=== PATIENT | female | born 1985 | race Caucasian/White ===

== ENCOUNTER 2020-06-12 10:49 | Observation (INO) ==
[2020-06-12 11:31] LABS: Basophils % 0.4 %; Eosinophils # 0.1 K/mcL (0.0-0.6); Eosinophils % 0.9 %; Hematocrit 40.1 % (35.3-44.9); Hemoglobin 12.4 g/dL (11.5-15.4); Immature Granulocytes % 0.6 % (0-4); Lymphocytes # 1.4 K/mcL (0.6-4.6); Lymphocytes % 13.1 %; Mean Corpuscular HGB Conc 30.9 g/dL (31.6-35.5); Mean Corpuscular Hemoglobin 25.7 pg (28.0-33.3); Mean Corpuscular Volume 83.2 fL (83.0-100.0); Mean Platelet Volume 8.6 fL (9.4-12.4); Monocytes # 0.4 K/mcL (0.0-1.3); Monocytes % 3.5 %; Neutrophils # 8.9 K/mcL (1.6-8.9); Platelet Count 340 K/mcL (140-400); Red Blood Count 4.82 M/mcL (3.82-4.97); Red Cell Distribution Width 12.8 % (11.5-14.5); Segmented Neutrophils % 81.5 %
[2020-06-12 12:02] LABS: Alanine Aminotransferase 20 Units/L (7-52); Albumin 4.2 g/dL (3.5-5.7); Albumin/Globulin Ratio 1.6 (1.1-2.2); Alkaline Phosphatase 72 Units/L (34-104); Aspartate Amino Transferase 25 Units/L (13-39); BUN/Creatinine Ratio 14 (6-26); Bilirubin,Direct 0.1 mg/dL (0.0-0.2); Bilirubin,Indirect 0.4 mg/dL (0.0-1.0); Bilirubin,Total 0.5 mg/dL (0.3-1.0); Blood Urea Nitrogen 11 mg/dL (6-20); Calcium 9.3 mg/dL (8.6-10.3); Carbon Dioxide 22 mEq/L (23-29); Chloride 106 mEq/L (98-107); Globulin 2.7 g/dL (2.4-3.5); Glucose 119 mg/dL (70-105); Lactate Dehydrogenase 132 Units/L (140-271); Osmolality,Calculated 289 (280-300); Potassium 3.4 mEq/L (3.5-5.1); Sodium 139 mEq/L (136-145); Total Protein 6.9 g/dL (6.4-8.9); Uric Acid 4.6 mg/dL (2.3-7.6); eGFR For African Americans > 60 (> 60); eGFR For Non-African Americans > 60 (> 60)
[2020-06-12 12:20] LABS: Bacteria,Urine Few per hpf (None-Few); Bilirubin,Urine Negative (Negative); Blood,Urine Large (Negative); Clarity,Urine Clear (Clear); Color,Urine Yellow (Yellow); Glucose,Urine (UA) Normal (Normal); Hyaline Casts,Urine Moderate per lpf (None Seen); Ketones,Urine Negative (Negative); Leukocyte Esterase,Urine Negative (Negative); Mucus,Urine Few per lpf (None-Few); Nitrite,Urine Negative (Negative); Protein,Urine 30 mg/dL (Neg-Trace); RBC,Urine 0-3 per hpf (0-3); Specific Gravity,Urine 1.019 (1.010-1.025); Squamous Epithelial Cell,Urine Few per hpf (None-Few); Urobilinogen,Urine Normal (Normal)
[2020-06-12 12:23] LABS: Protein/Creatinine Ratio,Urine 0.3 mg/mg (0.00-0.20)
[2020-06-12] MEDS: Ibuprofen 600 MG TABLET PO PRN (18:36)
[2020-06-13] MEDS: Acetaminophen 325 MG TABLET PO PRN ×2 (00:11→09:28)
[2020-06-13] MEDS: Magnesium Sulf 20 gm/SW 500mL 20 GM/500 ML IV.SOLN IVC SCH ×2 (00:15→09:27)
[2020-06-13] MEDS ORDERED: Calcium Gluconate 1,000 MG/10 ML VIAL ONE (00:39)
[2020-06-13] MEDS: Ibuprofen 600 MG TABLET PO PRN ×2 (04:58→11:39)
[2020-06-13 08:15] LABS: Basophils % 0.5 %; Eosinophils # 0.1 K/mcL (0.0-0.6); Eosinophils % 1.4 %; Hematocrit 37.7 % (35.3-44.9); Immature Granulocytes % 0.5 % (0-4); Lymphocytes # 1.5 K/mcL (0.6-4.6); Lymphocytes % 26.4 %; Mean Corpuscular HGB Conc 31.8 g/dL (31.6-35.5); Mean Corpuscular Hemoglobin 26.5 pg (28.0-33.3); Mean Corpuscular Volume 83.2 fL (83.0-100.0); Mean Platelet Volume 8.6 fL (9.4-12.4); Monocytes # 0.3 K/mcL (0.0-1.3); Neutrophils # 3.7 K/mcL (1.6-8.9); Platelet Count 317 K/mcL (140-400); Red Blood Count 4.53 M/mcL (3.82-4.97); Red Cell Distribution Width 12.7 % (11.5-14.5); Segmented Neutrophils % 65.2 %; White Blood Count 5.6 K/mcL (4.3-11.1)
[2020-06-13 08:38] LABS: Alanine Aminotransferase 17 Units/L (7-52); Aspartate Amino Transferase 20 Units/L (13-39); BUN/Creatinine Ratio 16 (6-26); Blood Urea Nitrogen 10 mg/dL (6-20); Lactate Dehydrogenase 121 Units/L (140-271); eGFR For African Americans > 60 (> 60); eGFR For Non-African Americans > 60 (> 60)
[2020-06-13] MEDS: Ringers Solution, Lactated 1,000 ML IVC SCH ×2 (10:30→19:41)
[2020-06-13] MEDS ORDERED: Ringers Solution, Lactated 1,000 ML ONE (10:33)
[2020-06-13] MEDS ORDERED: Magnesium Sulf 20 gm/SW 500mL 20 GM/500 ML IV.SOLN IVC SCH (19:15)
[2020-06-13] MEDS: levETIRAcetam 250 MG TABLET PO SCH (19:42)
[2020-06-14] MEDS: levETIRAcetam 250 MG TABLET PO SCH (08:18)
[2020-06-14 09:39] VITALS: BP 129/88
[2020-06-17] MEDS ORDERED: ADALIMUMAB 40 MG SQ SCH (09:00)
== END 2020-06-14 11:26 | disposition home or self-care (01) ==
LOC: EMEROOARM 10:49 → 3BNU 10:49 → 1NENUOBS 15:17
PROVIDERS: ADMIT Obstetrics & Gynecology; ATTEND Obstetrics & Gynecology

== ENCOUNTER 2020-10-14 10:39 | Inpatient (IN) ==
[2020-10-14] MEDS ORDERED: 0.9 % Sodium Chloride 1,000 ML IVC ONE ×3 (10:45→12:19)
[2020-10-14] MEDS ORDERED: Ondansetron 4 MG/2 ML VIAL IVP ONE (10:45)
[2020-10-14] MEDS ORDERED: Pantoprazole 40 MG VIAL IVP ONE (10:45)
[2020-10-14 11:26] LABS: Hematocrit 43.1 % (35.3-44.9); Hemoglobin 13.1 g/dL (11.5-15.4); Mean Corpuscular HGB Conc 30.4 g/dL (31.6-35.5); Mean Corpuscular Hemoglobin 24.3 pg (28.0-33.3); Mean Corpuscular Volume 80.1 fL (83.0-100.0); Mean Platelet Volume 9.3 fL (9.4-12.4); Platelet Count 296 K/mcL (140-400); Red Blood Count 5.38 M/mcL (3.82-4.97); Red Cell Distribution Width 14.1 % (11.5-14.5); White Blood Count 11.3 K/mcL (4.3-11.1)
[2020-10-14] MEDS ORDERED: Ketorolac 15 MG/ML VIAL IVP ONE (11:40)
[2020-10-14 11:49] LABS: Albumin/Globulin Ratio 1.5 (1.1-2.2); Bilirubin,Direct 0.2 mg/dL (0.0-0.2); Bilirubin,Indirect 0.9 mg/dL (0.0-1.0); Bilirubin,Total 1.1 mg/dL (0.3-1.0); Calcium 9.6 mg/dL (8.6-10.3); Globulin 2.6 g/dL (2.4-3.5); Potassium 3.7 mEq/L (3.5-5.1); Total Protein 6.6 g/dL (6.4-8.9)
[2020-10-14 11:50] LABS: Monocytes # 0.1 K/mcL (0.0-1.3)
[2020-10-14] MEDS ORDERED: 0.9 % Sodium Chloride 1,000 ML ONE (12:04)
[2020-10-14] MEDS ORDERED: Piperacillin/Tazobactam 3.375 GM in 0.9 % Sodium Chloride Mini Bag 100 ML IVPB ONE (12:11)
[2020-10-14] MEDS ORDERED: Morphine Sulfate 2 MG/ML SYRINGE IVP ONE (12:21)
[2020-10-14 12:22] LABS: Adenovirus Not Detected (Not Detect); Bordetella Pertussis Not Detected (Not Detect); Chlamydophila pneumoniae Not Detected (Not Detect); Coronavirus 229E Not Detected (Not Detect); Coronavirus HKU1 Not Detected (Not Detect); Coronavirus NL63 Not Detected (Not Detect); Coronavirus OC43 Not Detected (Not Detect); Human Metapneumovirus Not Detected (Not Detect); Human Rhinovirus/Enterovirus Not Detected (Not Detect); Influenza A Subtype 2009 H1 Not Detected (Not Detect); Influenza B Not Detected (Not Detect); Mycoplasma pneumoniae Not Detected (Not Detect); Parainfluenza Virus 1 Not Detected (Not Detect); Parainfluenza Virus 2 Not Detected (Not Detect); Parainfluenza Virus 3 Not Detected (Not Detect); Parainfluenza Virus 4 Not Detected (Not Detect); Respiratory Syncytial Virus Not Detected (Not Detect); SARS-CoV-2 Not Detected (Not Detect)
[2020-10-14 13:19] LABS: Lymphocytes # 0.3 K/mcL (0.6-4.6); Neutrophils # 9.3 K/mcL (1.6-8.9)
[2020-10-14 13:20] LABS: Anisocytosis 1+ (Not Present); Platelet Estimate Normal (Normal)
[2020-10-14 13:35] LABS: Bilirubin,Urine Negative (Negative); Blood,Urine Negative (Negative); Clarity,Urine Turbid (Clear); Color,Urine Yellow (Yellow); Glucose,Urine (UA) Normal (Normal); Hyaline Casts,Urine Moderate per lpf (None Seen); Ketones,Urine 40 mg/dL (Negative); Leukocyte Esterase,Urine Negative (Negative); Mucus,Urine Many per lpf (None-Few); Nitrite,Urine Negative (Negative); Protein,Urine 100 mg/dL (Neg-Trace); Specific Gravity,Urine 1.027 (1.010-1.025); Squamous Epithelial Cell,Urine Few per hpf (None-Few); Urobilinogen,Urine Normal (Normal)
[2020-10-14] MEDS ORDERED: Ondansetron 4 MG/2 ML VIAL IVP PRN (13:49)
[2020-10-14] MEDS ORDERED: Naloxone 0.4 MG/ML INJ IVP PRN (13:49)
[2020-10-14] MEDS: MethylPREDNISolone 40 MG/ML VIAL IVP SCH (15:15)
[2020-10-14] MEDS: Ringers Solution, Lactated 1,000 ML IVC SCH (15:16)
[2020-10-14 15:43] LABS: BUN/Creatinine Ratio 26 (6-26); Blood Urea Nitrogen 22 mg/dL (6-20); Calcium 7.1 mg/dL (8.6-10.3); Carbon Dioxide 20 mEq/L (23-29); Chloride 110 mEq/L (98-107); Glucose 118 mg/dL (70-105); Osmolality,Calculated 292 (280-300); Potassium 3.3 mEq/L (3.5-5.1); Sodium 139 mEq/L (136-145); eGFR For African Americans > 60 (> 60); eGFR For Non-African Americans > 60 (> 60)
[2020-10-14] MEDS ORDERED: Potassium Chloride 20 MEQ, Lidocaine 1% 2 ML in 0.9 % Sodium Chloride 250 ML IVPB ONE (16:02)
[2020-10-14] MEDS: Pantoprazole 40 MG VIAL IVP SCH (17:06)
[2020-10-14] MEDS: Piperacillin/Tazobactam 3.375 GM in 0.9 % Sodium Chloride Mini Bag 100 ML IVPB SCH (20:50)
[2020-10-15] MEDS ORDERED: Morphine Sulfate 2 MG/ML SYRINGE IVP ONE (02:38)
[2020-10-15 03:01] LABS: Acinetobacter baumannii by PCR Not Detected (Not Detect); Candida albicans by PCR Not Detected (Not Detect); Candida glabrata by PCR Not Detected (Not Detect); Candida krusei by PCR Not Detected (Not Detect); Candida parapsilosis by PCR Not Detected (Not Detect); Candida tropicalis by PCR Not Detected (Not Detect); Enterobacter cloacae Cmplx PCR Not Detected (Not Detect); Enterococcus by PCR Not Detected (Not Detect); Escherichia coli by PCR DETECTED (Not Detect); Klebsiella oxytoca by PCR Not Detected (Not Detect); Klebsiella pneumoniae by PCR Not Detected (Not Detect); Proteus by PCR Not Detected (Not Detect); Pseudomonas aeruginosa by PCR Not Detected (Not Detect); Serratia marcescens by PCR Not Detected (Not Detect); Staphylococcus aureus by PCR Not Detected (Not Detect); Staphylococcus by PCR Not Detected (Not Detect); Streptococcus agalactiae(B)PCR Not Detected (Not Detect); Streptococcus by PCR Not Detected (Not Detect); Streptococcus pneumoniae PCR Not Detected (Not Detect); Streptococcus pyogenes (A) PCR Not Detected (Not Detect); blaKPC Carbapenem-Resist Gene Not Detected (Not Detect); mecA Methicillin-Resist Gene Not Detected (Not Detect); vanA/B Vancomycin-Resist Genes Not Detected (Not Detect)
[2020-10-15] MEDS: Ringers Solution, Lactated 1,000 ML IVC SCH (05:08)
[2020-10-15] MEDS: Piperacillin/Tazobactam 3.375 GM in 0.9 % Sodium Chloride Mini Bag 100 ML IVPB SCH (05:10)
[2020-10-15] MEDS: Pantoprazole 40 MG VIAL IVP SCH (05:12)
[2020-10-15 06:33] LABS: BUN/Creatinine Ratio 28 (6-26); Blood Urea Nitrogen 18 mg/dL (6-20); Calcium 7.1 mg/dL (8.6-10.3); Carbon Dioxide 23 mEq/L (23-29); Chloride 107 mEq/L (98-107); Glucose 104 mg/dL (70-105); Osmolality,Calculated 284 (280-300); Potassium 3.2 mEq/L (3.5-5.1); Sodium 136 mEq/L (136-145); eGFR For African Americans > 60 (> 60); eGFR For Non-African Americans > 60 (> 60)
[2020-10-15 07:01] LABS: Hematocrit 31.4 % (35.3-44.9); Hemoglobin 9.8 g/dL (11.5-15.4); Mean Corpuscular HGB Conc 31.2 g/dL (31.6-35.5); Mean Corpuscular Hemoglobin 24.9 pg (28.0-33.3); Mean Corpuscular Volume 79.9 fL (83.0-100.0); Mean Platelet Volume 9.4 fL (9.4-12.4); Platelet Count 137 K/mcL (140-400); Red Blood Count 3.93 M/mcL (3.82-4.97); Red Cell Distribution Width 14.1 % (11.5-14.5); White Blood Count 14.7 K/mcL (4.3-11.1)
[2020-10-15 07:25] LABS: Eosinophils # 0.3 K/mcL (0.0-0.6); Lymphocytes # 0.6 K/mcL (0.6-4.6); Monocytes # 0.6 K/mcL (0.0-1.3); Neutrophils # 12.4 K/mcL (1.6-8.9); Platelet Estimate Slight Decrease (Normal); Toxic Granulation Present (Not Present)
[2020-10-15] MEDS ORDERED: Potassium Chloride 20 MEQ, Lidocaine 1% 2 ML in 0.9 % Sodium Chloride 250 ML IVPB ONE (07:29)
[2020-10-15] MEDS: MethylPREDNISolone 40 MG/ML VIAL IVP SCH (09:37)
[2020-10-15] MEDS: BuPROPion XL (24 HR) 150 MG TABLET PO SCH (09:38)
[2020-10-15] MEDS: Prenatal Vit/FA 1 EACH TABLET PO SCH (09:38)
[2020-10-15] MEDS ORDERED: Acetaminophen IV 1,000 MG/100 ML BAG IVPB ONE (11:22)
[2020-10-15] MEDS: cefTRIAXone 2,000 MG in Water for inj. (sterile) 20 ML IVP SCH (11:59)
[2020-10-15] MEDS: predniSONE 20 MG TABLET PO SCH (12:00)
[2020-10-16] MEDS ORDERED: Acetaminophen IV 1,000 MG/100 ML BAG IVPB ONE ×3 (00:13→21:25)
[2020-10-16] MEDS ORDERED: *HR* Promethazine 25 MG/ML VIAL IM ONE (00:14)
[2020-10-16] MEDS ORDERED: *HR* LORazepam 0.5 MG TABLET PO ONE (01:18)
[2020-10-16 06:21] LABS: Hematocrit 32.7 % (35.3-44.9); Hemoglobin 10.1 g/dL (11.5-15.4); Mean Corpuscular HGB Conc 30.9 g/dL (31.6-35.5); Mean Corpuscular Hemoglobin 24.7 pg (28.0-33.3); Mean Platelet Volume 10.4 fL (9.4-12.4); Monocytes # 0.2 K/mcL (0.0-1.3); Platelet Count 110 K/mcL (140-400); Red Blood Count 4.09 M/mcL (3.82-4.97); White Blood Count 9.3 K/mcL (4.3-11.1)
[2020-10-16 06:44] LABS: Alanine Aminotransferase 27 Units/L (7-52); Albumin 2.7 g/dL (3.5-5.7); Albumin/Globulin Ratio 1.4 (1.1-2.2); Alkaline Phosphatase 43 Units/L (34-104); Aspartate Amino Transferase 45 Units/L (13-39); BUN/Creatinine Ratio 19 (6-26); Bilirubin,Total 0.7 mg/dL (0.3-1.0); Blood Urea Nitrogen 12 mg/dL (6-20); Calcium 7.7 mg/dL (8.6-10.3); Carbon Dioxide 24 mEq/L (23-29); Chloride 107 mEq/L (98-107); Glucose 110 mg/dL (70-105); Osmolality,Calculated 284 (280-300); Potassium 3.3 mEq/L (3.5-5.1); Sodium 137 mEq/L (136-145); Total Protein 4.7 g/dL (6.4-8.9); eGFR For African Americans > 60 (> 60); eGFR For Non-African Americans > 60 (> 60)
[2020-10-16 06:47] LABS: Lymphocytes # 0.2 K/mcL (0.6-4.6); Neutrophils # 8.6 K/mcL (1.6-8.9)
[2020-10-16 06:48] LABS: Anisocytosis 1+ (Not Present); Platelet Estimate Slight Decrease (Normal); Toxic Granulation Present (Not Present); Toxic Vacuolation Present (Not Present)
[2020-10-16] MEDS ORDERED: Potassium Chloride 40 MEQ, Lidocaine 1% 2 ML in 0.9 % Sodium Chloride 500 ML IVPB ONE (07:24)
[2020-10-16 07:51] LABS: Magnesium 1.7 mg/dL (1.6-2.6); Phosphorous 1.9 mg/dL (2.7-4.5)
[2020-10-16] MEDS: predniSONE 20 MG TABLET PO SCH (09:09)
[2020-10-16] MEDS: BuPROPion XL (24 HR) 150 MG TABLET PO SCH (09:09)
[2020-10-16] MEDS: Prenatal Vit/FA 1 EACH TABLET PO SCH (09:09)
[2020-10-16] MEDS: Calcium Gluconate 1gm/50mL 1 GM/50 ML BAG IVPB SCH ×2 (09:10→10:42)
[2020-10-16] MEDS ORDERED: Simethicone 80 MG TAB.CHEW PO PRN (09:18)
[2020-10-16] MEDS: cefTRIAXone 2,000 MG in Water for inj. (sterile) 20 ML IVP SCH (13:01)
[2020-10-17 01:12] LABS: Hematocrit 32.6 % (35.3-44.9); Hemoglobin 10.1 g/dL (11.5-15.4); Mean Corpuscular Hemoglobin 24.6 pg (28.0-33.3); Mean Corpuscular Volume 79.5 fL (83.0-100.0); Mean Platelet Volume 10.4 fL (9.4-12.4); Platelet Count 100 K/mcL (140-400); Red Cell Distribution Width 14.4 % (11.5-14.5)
[2020-10-17 01:33] LABS: Magnesium 1.8 mg/dL (1.6-2.6); Phosphorous 3.1 mg/dL (2.7-4.5)
[2020-10-17 01:36] LABS: Alanine Aminotransferase 26 Units/L (7-52); Albumin 2.8 g/dL (3.5-5.7); Albumin/Globulin Ratio 1.3 (1.1-2.2); Alkaline Phosphatase 45 Units/L (34-104); Aspartate Amino Transferase 43 Units/L (13-39); BUN/Creatinine Ratio 19 (6-26); Bilirubin,Total 0.4 mg/dL (0.3-1.0); Blood Urea Nitrogen 10 mg/dL (6-20); Carbon Dioxide 23 mEq/L (23-29); Chloride 107 mEq/L (98-107); Globulin 2.1 g/dL (2.4-3.5); Glucose 111 mg/dL (70-105); Osmolality,Calculated 284 (280-300); Potassium 3.6 mEq/L (3.5-5.1); Sodium 137 mEq/L (136-145); Total Protein 4.9 g/dL (6.4-8.9); eGFR For African Americans > 60 (> 60); eGFR For Non-African Americans > 60 (> 60)
[2020-10-17 02:21] LABS: Eosinophils # 0.1 K/mcL (0.0-0.6); Lymphocytes # 0.5 K/mcL (0.6-4.6); Neutrophils # 5.4 K/mcL (1.6-8.9); Platelet Estimate Slight Decrease (Normal)
[2020-10-17] MEDS: BuPROPion XL (24 HR) 150 MG TABLET PO SCH (09:03)
[2020-10-17] MEDS: Prenatal Vit/FA 1 EACH TABLET PO SCH (09:03)
[2020-10-17] MEDS: Albumin 25% 25gram/100mL 25 GM/100 ML IV.SOLN IVC SCH ×2 (09:04→10:30)
[2020-10-17] MEDS: predniSONE 20 MG TABLET PO SCH (09:04)
[2020-10-17 10:56] VITALS: BP 135/90
[2020-10-17] MEDS: cefTRIAXone 2,000 MG in Water for inj. (sterile) 20 ML IVP SCH (12:13)
== END 2020-10-17 13:20 | disposition home or self-care (01) | DRG 720 ==
LOC: 2NNU 10:39 → EMEROOARM 10:39 → SUATTDRO 13:04 → 2NNU 13:39 → 3ANU 10-16 17:56
PROVIDERS: ADMIT Student in an Organized Health Care Education/Training Program; ATTEND Internal Medicine